=== PATIENT | female | born 1985 | race Two or more races ===

== ENCOUNTER 2017-01-27 17:53 | Emergency (ER) | payer MEDICAID, OTHER, SELFPAY ==
--- NOTE | 2017-01-27 19:31 | EDM.PDOC ---
ED HPI GENERAL MEDICAL PROBLEM - General Chief Complaint: ENT Problem Stated Complaint: DOUBLE EAR ACHE Time Seen by Provider: 01/27/17 18:58 Source of Information: Reports: Patient History Limitations: Reports: No Limitations - History of Present Illness INITIAL COMMENTS - FREE TEXT/NARRATIVE: The patient presents with bilateral ear pain. This has been going on for over 1 week. She has a history of ear infections and TM tubes as a child. She denies fever, cough, congestion or runny nose. She has no sore throat. She does have chills. Onset: Gradual Duration: Week(s): (1) Location: Reports: Other (Bilateral ear pain) Quality: Reports: Sharp Severity: Severe Improves with: Reports: None Worsens with: Reports: None Associated Symptoms: Reports: Fever/Chills. Denies: Chest Pain, Cough, Headaches, Nausea/Vomiting, Shortness of Breath Bilateral Ear Pain Score (Numeric/FACES): 7 - Related Data Allergies Allergy/AdvReac Type Severity Reaction Status Date / Time morphine Allergy Vomiting Verified 01/27/17 18:30 promethazine [From Phenergan] Allergy Other Verified 01/27/17 18:30 mint Allergy Vomiting Uncoded 01/27/17 18:30 Home Meds: Home Meds Amoxicillin 1,000 mg PO BID #40 tab 01/27/17 [Rx] Hydrocodone/Acetaminophen [Hydrocodon-Acetaminophen 5-325] 1 - 2 each PO Q6HR PRN #20 tablet 01/27/17 [Rx] glipiZIDE [Glucotrol] 5 mg PO DAILY 01/27/17 [History] metFORMIN HCl [Metformin HCl] 1,000 mg PO DAILY 01/27/17 [History] ED ROS ENT - Review of Systems Review Of Systems: See Below Constitutional: Reports: Chills. Denies: Fever HEENT: Reports: Ear Pain Respiratory: Reports: No Symptoms Cardiovascular: Reports: No Symptoms Endocrine: Reports: No Symptoms GI/Abdominal: Reports: No Symptoms : Reports: No Symptoms ED EXAM, ENT - Physical Exam Exam: See Below Exam Limited By: No Limitations General Appearance: Alert, No Apparent Distress Ears: Normal External Exam, TM Erythema (Bilateral), TM Fluid. No: Mastoid Tenderness Nose: Normal Inspection Mouth/Throat: Normal Inspection Head: Atraumatic, Normocephalic Neck: Lymphadenopathy (R) Respiratory/Chest: No Respiratory Distress, Lungs Clear, Normal Breath Sounds Cardiovascular: Regular Rate, Rhythm, No Edema, No Murmur GI/Abdominal: Soft, Non-Tender, No Organomegaly, No Mass Course - Vital Signs Last Recorded V/S: Last Vital Signs Temp 97.9 F 01/27/17 18:31 Pulse 78 01/27/17 18:31 Resp BP 138/98 H 01/27/17 18:31 Pulse Ox 98 01/27/17 18:31 Departure - Departure Time of Disposition: 19:30 Disposition: Home, Self-Care 01 Condition: Good Clinical Impression: Otitis media Qualifiers: Otitis media type: serous Chronicity: acute Laterality: bilateral Recurrence: not specified as recurrent Qualified Code(s): H65.03 - Acute serous otitis media , bilateral - Discharge Information Prescriptions: Hydrocodone/Acetaminophen [Hydrocodon-Acetaminophen 5-325] 1 - 2 each PO Q6HR PRN #20 tablet PRN Reason: Pain Amoxicillin 1,000 mg PO BID #40 tab Referrals: PCP,None [Primary Care Provider] - Angela Foster MD [Physician] - 1 Week Additional Instructions: Take the amoxicillin 2 times per day for 10 days. Take the hydrocodone 1 to 2 pills every 6 hours as needed for pain. Follow up with Dr Foster if you are not better by next week. Please return if you are worse.
== END 2017-01-27 19:43 | disposition home or self-care (01) ==
LOC: JD.ED 17:53
DX: H65.03 Acute serous otitis media, bilateral (principal); Z88.5 Allergy status to narcotic agent; Z88.8 Allergy status to other drugs, medicaments and biological substances; Z79.84 Long term (current) use of oral hypoglycemic drugs
CPT/HCPCS: 99282; 99283

== ENCOUNTER 2017-01-31 20:26 | Emergency (ER) | payer MEDICAID, OTHER, SELFPAY ==
--- NOTE | 2017-01-31 21:16 | EDM.PDOC ---
ED HPI GENERAL MEDICAL PROBLEM - General Chief Complaint: ENT Problem Stated Complaint: EARACHE/SORE THROAT Time Seen by Provider: 01/31/17 20:49 Source of Information: Reports: Patient History Limitations: Reports: No Limitations - History of Present Illness INITIAL COMMENTS - FREE TEXT/NARRATIVE: 31-year-old female with chief complaint of bilateral ear pain. She was seen in this emergency department 4 days ago and diagnosed with acute bilateral otitis media. Prescribed amoxicillin. She's been taking it. She continues to have ear pain so came in for reevaluation. No fever. She does have stuffy nose and sore throat and cough. Taking ibuprofen for pain with no relief. Bilateral Ear Pain Score (Numeric/FACES): 8 - Related Data Allergies Allergy/AdvReac Type Severity Reaction Status Date / Time morphine Allergy Vomiting Verified 01/27/17 18:30 promethazine [From Phenergan] Allergy Other Verified 01/27/17 18:30 mint Allergy Vomiting Uncoded 01/27/17 18:30 Home Meds: Home Meds Amoxicillin 1,000 mg PO BID #40 tab 01/27/17 [Rx] Hydrocodone/Acetaminophen [Hydrocodon-Acetaminophen 5-325] 1 - 2 each PO Q6HR PRN #20 tablet 01/27/17 [Rx] glipiZIDE [Glucotrol] 5 mg PO DAILY 01/27/17 [History] metFORMIN HCl [Metformin HCl] 1,000 mg PO DAILY 01/27/17 [History] Past Medical History - Past Health History Medical/Surgical History: Denies Medical/Surgical History HEENT History: Reports: Impaired Vision Other HEENT History: Wears glasses Social & Family History - Tobacco Use Smoking Status *Q: Never Smoker - Caffeine Use Caffeine Use: Reports: Energy Drinks, Soda, Tea - Recreational Drug Use Recreational Drug Use: Yes Recreational Drug Type: Reports: Marijuana/Hashish Other Recreational Drug Type: pt used to smoke in [place] it was legal ED ROS ENT - Review of Systems Review Of Systems: See Below Constitutional: Denies: Fever HEENT: Reports: Ear Pain, Rhinitis, Throat Pain Respiratory: Reports: Cough. Denies: Shortness of Breath Cardiovascular: Denies: Chest Pain GI/Abdominal: Denies: Abdominal Pain ED EXAM, ENT - Physical Exam Exam: See Below Exam Limited By: No Limitations General Appearance: Alert, WD/WN, No Apparent Distress Eye Exam: Bilateral Eye: Normal Inspection Ears: Normal External Exam, Normal Canal, Hearing Grossly Normal, Normal TMs. No: Auricular Erythema, Mastoid Swelling, Mastoid Tenderness, TM Bulging, TM Dullness, TM Erythema, TM Vesicles Nose: Normal Inspection, Normal Mucousa, No Blood Mouth/Throat: Normal Inspection, Normal Oropharynx Head: Atraumatic, Normocephalic Neck: Normal Inspection, Supple, Non-Tender, Full Range of Motion Respiratory/Chest: No Respiratory Distress, Lungs Clear, Normal Breath Sounds Neurological: Alert, Oriented, Normal Cognition Psychiatric: Normal Affect, Normal Mood Skin: Warm, Dry, Intact, Normal Color, No Rash Course - Vital Signs Last Recorded V/S: Last Vital Signs Temp 37.1 C 01/31/17 20:44 Pulse 90 01/31/17 20:44 Resp 18 01/31/17 20:44 BP 135/100 H 01/31/17 20:44 Pulse Ox 96 01/31/17 20:44 - Re-Assessments/Exams Free Text/Narrative Re-Assessment/Exam: 01/31/17 21:52 Ear exam is benign. There is no evidence of acute infection. Suggested that she take a decongestant and [id number] medications as needed for pain. Departure - Departure Time of Disposition: 21:15 Disposition: Home, Self-Care 01 Clinical Impression: Viral upper respiratory illness - Discharge Information Instructions: Upper Respiratory Infection, Adult, [id number] Referrals: PCP,None [Primary Care Provider] - Forms: ED Department Discharge Additional Instructions: 1. Continue amoxicillin as prescribed 2. Take a decongestant. This may help relieve ear pain. 3. Take ibuprofen and/or acetaminophen (tylenol) as needed for pain 4. Follow up with a clinic provider as needed. Call [phone] to schedule with a provider here.
== END 2017-01-31 21:28 | disposition home or self-care (01) ==
LOC: JD.ED 20:26
DX: J06.9 Acute upper respiratory infection, unspecified (principal); Z88.5 Allergy status to narcotic agent; Z79.84 Long term (current) use of oral hypoglycemic drugs
CPT/HCPCS: 99282; 99283